=== PATIENT | male | born 1975 | race Two or more races ===

== ENCOUNTER 2024-06-13 17:10 | Inpatient (IN) | payer BC ==
[~2024-06-13] VITALS: Ht 180.3 cm; Wt 74.8 kg
[2024-06-13 17:45] VITALS: BP 179/94; PULSE 98; RESP 18; TEMP 99.3; O2SAT 97
[2024-06-13 17:52] VITALS: BP 179/94; PULSE 83; RESP 18; TEMP 99.3; O2SAT 96
[2024-06-13] MEDS ORDERED: CLON0.5T3 PO (18:23)
[2024-06-13] MEDS ORDERED: METO25TA5 PO (18:23)
[2024-06-13] MEDS ORDERED: HYDR-4902 PO (18:23)
[2024-06-13 18:38] LABS: Basophils # (auto) 0 10 ^3/uL (0-0.2); Basophils % (auto) 0.5 % (0.0-2.0); Eosinophils # (auto) 0 10 ^3/uL (0-0.8); Eosinophils % (auto) 0.1 % (0.0-7.0); Hematocrit 43.7 % (41.0-53.0); Hemoglobin 14.6 g/dL (13.5-17.5); Lymphocytes # (auto) 0.8 10 ^3/uL (0.4-5.4); Lymphocytes % (auto) 12.5 % (10.0-50.0); Mean Corpuscular Hemoglobin 28.3 pg (28.0-32.0); Mean Corpuscular Hgb Conc. 33.4 g/dL (32.0-36.0); Mean Corpuscular Volume 84.5 fL (80.0-100.0); Monocytes # (auto) 0.8 10 ^3/uL (0-1.3); Monocytes % (auto) 12.4 % (0.0-12.0); Neutrophils % (auto) 74.5 % (37.0-80.0); Nucleated Red Blood Cells % 0.1 %; Platelet Count (auto) 211 10^3/uL (140-450); Red Blood Cells 5.17 10^6/uL (4.5-5.90); Red Cell Distribution Width 12.8 % (11.8-14.3); White Blood Cell 6.8 10^3/uL (4.4-10.8)
[2024-06-13] MEDS: SODIUM CHLORIDE 0.9% 1,000 ML IV SCH ×2 (18:51→20:53)
[2024-06-13 18:56] LABS: Alanine Aminotransferase 23 U/L (7-40); Albumin 4.2 g/dL (3.2-4.8); Alkaline Phosphatase 69 U/L (46-116); Anion Gap 6 (5-15); Aspartate Aminotransferase 15 U/L (13-40); BUN/Creatinine Ratio 11.6 (10.0-20.0); Bilirubin, Total 0.5 mg/dL (0.2-1.0); Blood Urea Nitrogen 10 mg/dL (9-23); Calcium 8.9 mg/dL (8.7-10.4); Carbon Dioxide 26 mmol/L (20-31); Chloride 101 mmol/L (98-107); Glucose 199 mg/dL (74-106); Potassium 4.4 mmol/L (3.5-5.1); Sodium 133 mmol/L (136-145); Total Protein 6.2 g/dL (5.7-8.2)
[2024-06-13] MEDS: PIPERACILLIN-TAZOB 3.375GM 100 ML IV ONE (18:57)
[2024-06-13] MEDS ORDERED: ALBUTEROL SULF 2.5 MG/0.5ML(0.5%) NEB SOLN NEB PRN (19:30)
[2024-06-13 19:54] LABS: Magnesium 2.1 mg/dL (1.6-2.6)
[2024-06-13 19:56] LABS: Phosphorus 2.4 mg/dL (2.4-5.1)
[2024-06-13 20:00] VITALS: PULSE 86
[2024-06-13 20:47] LABS: Erythrocyte Sedimentation Rate 7 mm/hr (0-20)
[2024-06-13 20:48] VITALS: BP 179/94; PULSE 83; RESP 18; TEMP 99.3; O2SAT 96
[2024-06-13] MEDS: ACETAMINOPHEN 325 MG TAB PO PRN (20:50)
[2024-06-13] MEDS: METOPROLOL TARTRATE 25 MG TAB PO SCH (20:52)
[2024-06-13 21:00] VITALS: BP 165/101; PULSE 82; RESP 18; TEMP 102.5; O2SAT 97
[2024-06-14] VITALS (10 sets, daily range): BP systolic 132–165; BP diastolic 71–87; PULSE 66–86; RESP 17–20; TEMP 97.7–98.9; O2SAT 93–99
[2024-06-14] MEDS ORDERED: NITROGLYCERIN 0.4 MG SL TAB SL PRN
[2024-06-14] MEDS ORDERED: MORPHINE SULFATE INJ 2 MG/ml SYRG IV PRN
--- NOTE | 2024-06-14 00:31 | DVHHP2 ---
History of Present Illness 48 yr old young middle aged [place] male with known h/o NIDDM, Hypertension is directly admitted for further eval and management of s/s of URI congestion started several days ago followed by productive cough, chest congestion, pleuritic chest pains along with high grade fever up to 102 F with severe chills x past 2 days.Also reports to have easy tired ness, hypersomnolence As per patient, He was exposed to a family member with similar illness last week. Apparently he failed to respond to out patient treatment measures including IV antibiotics and IV isotonic saline hydration, oral antibiotics and noted to be critically ill with severe dehydration, prostation and periodic hyperventilation, tachypnoea at rate of 28/min, O2 sat low at 89% Also noted uncontrolled diabetes with hyperosmolar state on lab exam. As a result the patient is admitted for IV hydration, IV antibiotics and manage ment of uncontrolled NIDDM Past Medical History Past Medical History Medical records-reviewed Cardiovascular history-Known history of well controlled hypertension without any cardiac event or coronary intervention- Currently on Metopralol, Valsartan Respiratory history: Gastrointestinal history: History accidental H2 O2 william at upper palate Endocrine history: NIDDM, exogenous obesity-NIDDM remains good control Hemoglobin A1c improved under 6% Past Surgical History Family History Mother- has CAD, NIDDM< Hypertension Brother- has Chronic pancreatitis and NIDDM Social History 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, , lives with spouse and family History of smoking: Cigarettes: Never smoked History of smoking E cigarettes: Denies History of smoking marijuana: Denies History of drinking alcohol: History of alcoholism-Quit since 2014 History of substance abuse: Denies Patient Family History: Diabetes mellitus G8 MOTHER G8 FATHER Allergies: Coded Allergies: NO KNOWN ALLERGIES (Unverified , 06/13/24) Home Meds Reported Medications Hydrocodone-Acetaminophen (Hydrocodone Bitartrate/AC 5-325 mg) 1 Tab Tab, 1 TAB PO DAILY PRN for PAIN, TAB 06/13/24 Clonazepam (KlonoPIN TABLET) 0.5 Mg Tb, 1 TAB PO HS, #30 TAB 06/13/24 Metoprolol Tartrate (Metoprolol Tartrate) 25 Mg Tab, 25 MG PO BID for 30 Days, MG 06/13/24 Current Medications Current Medications Medications (Trade) Dose Ordered Sig/Soha Route PRN Reason Start Time Stop Time Status Last Admin Sodium Chloride 1,000 ml @ 100 mls/hr Q10H IV 06/13/24 18:00 06/13/24 19:54 DC 06/13/24 18:51 Metoprolol Tartrate (Lopressor Tablet) 25 mg BID PO 06/13/24 22:00 06/13/24 20:52 Sodium Chloride 1,000 ml @ 100 mls/hr Q10H IV 06/14/24 05:00 Promethazine HCl/ Codeine (Phenergan W/ Codeine) 5 ml Q6HP PRN PO FOR COUGH 06/13/24 19:30 Piperacillin Sod/ Tazobactam Sod 100 ml @ 25 mls/hr Q6HR IV 06/14/24 00:00 Albuterol (Ventolin Medneb) 1.25 mg Q4HPRN PRN NEB SHORTNESS OF BREATH 06/13/24 19:30 Sodium Chloride 1,000 ml @ 100 mls/hr Q10H IV 06/13/24 20:15 06/14/24 05:00 06/13/24 20:53 Acetaminophen (Tylenol Tablet) 650 mg Q6HP PRN PO MILD PAIN (1-3 PAIN SCALE) 06/13/24 20:15 06/13/24 20:50 Review of Systems Constitutional: Reports easy tiredness, high grade fever, chills weight loss HEENT: Reports headache/ENT pains or congestion, Reports sore throat hoarse voice, denies hearing or visual deficit Neck: Denies cervical spine local/radicular pains, denies goiters/stridor Denies stiffness spasms, reduced ROM, RS: Reports chest congestion, cough, wheezing, SOB, pleuritic chest pains CVS: Denies angina, palpitation, SOB, edema, orthopnea, PND GI: Reports loss of appetite, Denies epigastric pains, tenderness, N/V/D, Denies melena, GI bleeding, denies constipation, : Denies dysuria, flank pains, frequency, hematuria, Denies passing foul odor/cloudy turbid urine, nocturia MS: Reports generalized aches/pains, back pains, Denies radicular pains, denies generalized myalgias/muscle weakness EXTs: Denies edema, rash, open wounds, discoloration, radicular pains NEURO: Reports hypersomnolence, denies confused mental status, Denies focal weakness or seizures/tremors/myoclonic jerks SKIN: Denies rashes or open ulcerated wound ENDOCRINE: Reports polyuria, polydipsia, denies intolerance to heat and cold HEM/LYMPH: Reports easy tiredness, bruising, lymphadenopathy ALLERGY: Denies allergic reactions Psychiatry: Reports anxiety or depression disorder Otherwise the Review of Systems is Negative as per History & Physical Interview: Yes Vital Signs Vital Signs Date Time Temp Pulse Resp B/P (MAP) Pulse Ox O2 Delivery O2 Flow Rate FiO2 06/13/24 21:00 102.5 82 18 165/101 (122) 97 102.5 06/13/24 20:48 0.0 21 06/13/24 20:00 Room Air* Physical Exam Gen. appearance: Well-developed well nourished tall young middle aged [place] male appears critically ill, profoundly hypovolemic, hypersomnolent tachypneic, hyperventilating, in no distress- appears in stated age HEENT: Head normocephalic nontraumatic, Eye balls- shrunken-+2 Eyes: EOMI, PERRLA, conjunctiva pallor Absent, sclera nonicteric ENT: Bilateral nasal congestion and sinus tenderness present L TM- hyperemic, Tongue and mucous membranes dry+2 NECK: Supple, trachea midline, carotid upstroke +2 No thyroid or lymph node enlargement, Kernig's sign- negative no use of accessory muscles, ROM at C-spine full Breasts: Symmetrical, no lump no mass, no nipple discharge or abnormality CHEST: Asymmetrical expansion, periodic hyperventilation tachypnea, hypoventilation at bases RS: Clear breath sounds over anterior lung manning Reduced breath sounds at bilateral bases Bronchophony at R middle lobe present CVS: PMI-1 centimeter lateral to L MCL S1-S2 normal sinus, accentuated no gallop no murmur : Abdomen soft, obese, epigastric tenderness present bowel sounds present , no rebound tenderness masses or hernia EXTs: Distal pulses +2, pallor +1, no rash, no edema, capillary refill delay present, Feels peripherally cold SKIN: No rash, no open wounds 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 responds to his name, awakenable, oriented 3, cognitives slow but intact, speech nonfluent, Cranial Nerve II to XII-intact Motor- No pronator drift, 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 focal motor 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, Sensory-changes of peripheral neuropathy present, DTR +2, gait slow, wide Results Labs Test 06/13/24 18:29 Range/Units White Blood Count 6.8 4.4-10.8 10^3/uL Red Blood Count 5.17 4.5-5.90 10^6/uL Hemoglobin 14.6 13.5-17.5 g/dL Hematocrit 43.7 41.0-53.0 % Mean Corpuscular Volume 84.5 80.0-100.0 fL Mean Corpuscular Hemoglobin 28.3 28.0-32.0 pg Mean Corpuscular Hemoglobin Concent 33.4 32.0-36.0 g/dL Red Cell Distribution Width 12.8 11.8-14.3 % Platelet Count 211 140-450 10^3/uL Mean Platelet Volume 6.4 L 6.9-10.8 fL Neutrophils (%) (Auto) 74.5 37.0-80.0 % Lymphocytes (%) (Auto) 12.5 10.0-50.0 % Monocytes (%) (Auto) 12.4 H 0.0-12.0 % Eosinophils (%) (Auto) 0.1 0.0-7.0 % Basophils (%) (Auto) 0.5 0.0-2.0 % Neutrophils # (Auto) 5.0 1.6-8.6 10 ^3/uL Lymphocytes # (Auto) 0.8 0.4-5.4 10 ^3/uL Monocytes # (Auto) 0.8 0-1.3 10 ^3/uL Eosinophils # (Auto) 0 0-0.8 10 ^3/uL Basophils # (Auto) 0 0-0.2 10 ^3/uL Nucleated Red Blood Cells 0.1 % Erythrocyte Sedimentation Rate 7 0-20 mm/hr Sodium Level 133 L 136-145 mmol/L Potassium Level 4.4 3.5-5.1 mmol/L Chloride Level 101 98-107 mmol/L Carbon Dioxide Level 26 20-31 mmol/L Anion Gap 6 5-15 Blood Urea Nitrogen 10 9-23 mg/dL Creatinine 0.86 0.700-1.30 mg/dL Glomerular Filtration Rate Calc 107 >90 mL/min BUN/Creatinine Ratio 11.6 10.0-20.0 Serum Glucose 199 H 74-106 mg/dL Calcium Level 8.9 8.7-10.4 mg/dL Phosphorus Level 2.4 2.4-5.1 mg/dL Magnesium Level 2.1 1.6-2.6 mg/dL Total Bilirubin 0.5 0.2-1.0 mg/dL Aspartate Amino Transferase (AST) 15 13-40 U/L Alanine Aminotransferase (ALT) 23 7-40 U/L Alkaline Phosphatase 69 46-116 U/L C-Reactive Protein High Sensitivity 4.22 H <1.0 mg/dL Total Protein 6.2 5.7-8.2 g/dL Albumin 4.2 3.2-4.8 g/dL Primary Diagnosis Flu syndrome Suspect RML pneumonia Admitting Diagnosis: 1. Flu syndrome 2. Suspect RML pneumonia- failed to out patient measures 3. Severe dehydration 4. Altered level of consciousness from metabolic encephalopathy 5. Uncontrolled diabetes complicated by hyperosmolar state 6. Hypophospatemia 2' Diagnosis/Comorbidities 7. Personal H/o alcoholism -sober since 2014 Medical decision making: The patient appears to be critically ill from Flu syndrome -possibly complicated by developing pneumonitis on clinical exam * noted profoundly Severe dehydration-evident on clinical exam tachypnea, hyperventilation and hypersomnolence-altered consciousness The latter in abscence of focal neuro deficit is result of metobolic causes such as dehydration, +/- ? sepsis from developing pneumonia His CBC reflects total WBC-6.8 K, high no.of neutrophils 75%, 10% monocytes Serum lactate level is pending Chest x ray is pending- will follow as available Recommended sputum and blood cultures * Uncontrolled diabetes complicated by hyperosmolar state * considered immunologically compromised host for H/o NIDDM and alcoholism in past * Apparently he failed to respond to out patient treatment measures including IV antibiotics and IV isotonic saline hydration, oral antibiotics * The patient is recommended IV hydration with 0.9 NS x 2-3 liters, broad spectrum IV antibiotics and management of NIDDM thru ADA 1800 amira diet, humalog thru sliding scale and metformin * Full diabetic education is given * mario is discussed with assigned RN about diagnosis, treatment plans and prognosis Plan * Admit to telemetry * obtain blood and sputum culture * IV Zosyn- a broad spectrum antibiotics * consider bronchodilator INH and cough suppressant meds * Vitamin c 500 mg PO BID * IV isotonic saline administration followed by half NS * IV protonix * administer Na phosphate riders * Accu check Q AC and HS * Humalog thru sliding scale * oral/ Parenteral analgesics as PRN * Monitor CBC, CMP, lactate level * Update the patient The patient is well informed by me about 1. Clinical impression, treatment plans, side effects of medications, course of the disease And guarded prognosis 2. All patient's and concerns raised by patient or family are satisfactorily addressed by me Plan discussed with: Patient, Spouse Code Visit Code Visit Total Time (mins): 120 (including critical care) ALESHA VASQUEZ MD Jun 14, 2024 00:31
[2024-06-14] MEDS: PIPERACILLIN-TAZO 4.5GM 100 ML IV SCH (01:40)
[2024-06-14] MEDS: SOD CHL 0.45% 1,000 ML IV SCH (05:31)
[2024-06-14] MEDS: INSULIN LISPRO (HUMAN) 100 UNITS/ML ML SC SCH ×2 (06:17→22:23)
[2024-06-14 07:11] LABS: Alanine Aminotransferase 22 U/L (7-40); Albumin 4.1 g/dL (3.2-4.8); Alkaline Phosphatase 68 U/L (46-116); Anion Gap 5 (5-15); Aspartate Aminotransferase 14 U/L (13-40); BUN/Creatinine Ratio 9.6 (10.0-20.0); Blood Urea Nitrogen 9 mg/dL (9-23); Carbon Dioxide 26 mmol/L (20-31); Chloride 103 mmol/L (98-107); Glucose 124 mg/dL (74-106); LDL Cholesterol 97 mg/dL (< 100); Sodium 134 mmol/L (136-145); Triglycerides 96 mg/dL (< 150)
[2024-06-14 07:12] LABS: Bilirubin, Total 0.6 mg/dL (0.2-1.0); Cholesterol 169 mg/dL (< 200); HDL Cholesterol 57 mg/dL (40-59); Total Protein 6.3 g/dL (5.7-8.2)
[2024-06-14 07:35] LABS: Basophils # (auto) 0 10 ^3/uL (0-0.2); Basophils % (auto) 0.5 % (0.0-2.0); Eosinophils # (auto) 0 10 ^3/uL (0-0.8); Eosinophils % (auto) 0.5 % (0.0-7.0); Hematocrit 42.9 % (41.0-53.0); Hemoglobin 14.7 g/dL (13.5-17.5); Lymphocytes # (auto) 1.2 10 ^3/uL (0.4-5.4); Lymphocytes % (auto) 20.3 % (10.0-50.0); Mean Corpuscular Hemoglobin 28.6 pg (28.0-32.0); Mean Corpuscular Hgb Conc. 34.3 g/dL (32.0-36.0); Mean Corpuscular Volume 83.4 fL (80.0-100.0); Monocytes % (auto) 17.4 % (0.0-12.0); Neutrophils # (auto) 3.7 10 ^3/uL (1.6-8.6); Neutrophils % (auto) 61.3 % (37.0-80.0); Nucleated Red Blood Cells % 0.1 %; Platelet Count (auto) 213 10^3/uL (140-450); Red Blood Cells 5.14 10^6/uL (4.5-5.90)
[2024-06-14] MEDS: KETOROLAC TROMETH 30 MG/ML 1ML VIAL IV PRN (09:56)
[2024-06-14] MEDS: PROMETHAZINE W/CODEINE 5 ML ORAL SYRUP PO PRN (09:57)
--- NOTE | 2024-06-14 10:56 | DVH ---
CHEST RADIOGRAPH Indication: PNEUMONIA Technique: Frontal and lateral view of the chest was obtained Comparison: None FINDINGS: Lines and Tubes: None Lungs: Clear Pleura: No effusion. No pneumothorax. Cardiomediastinal contours: Unremarkable Bones: Unremarkable IMPRESSION: No evidence of acute disease.
[2024-06-14 13:38] LABS: Urine Bacteria None Seen /hpf (None Seen)
[2024-06-14 13:52] LABS: Urine Blood Negative /uL (Negative); Urine Clarity Clear (Clear); Urine Color Light-Yellow (Yellow); Urine Protein, UAD Negative (Negative); Urine Specific Gravity 1.012 (1.001-1.035); Urine Urobilinogen Normal (Negative); Urine WBC <1 /hpf (0 - 3)
[2024-06-14] MEDS: SODIUM PHOSPHATES 20 MEQ in SODIUM CHL 0.9% 100 ML IV SCH (14:06)
[2024-06-14] MEDS: CLOTRIMAZOLE W/ BETAMETH TOPICAL CR 15 GM TUBE TOP SCH (22:00)
--- NOTE | 2024-06-14 23:17 | DVHPN2 ---
Progress Note - Dictate Date Seen: Jun 14, 2024 Has the PT tested + for MRSA If YES, has PT been informed?: No Medical Necessity Reason Pt with a Central, PICC or Fol: No Medical Necessity Reason IV antibiotics, IV hydration Subjective The patient still symptomatic for cough chest congestion and hypovolemia While noted significant recovery from hypersomnolence * Continued on IV antibiotics and bronchodilators * Noted fairly well-controlled diabetes with hyperglycemia * noted fungal infection affecting palms of bilateral hands and Plantar surface of bilateral feeet Overnight events are reviewed through medical chart and case discussion with patient's assigned RN while making rounds on patient on the day of service vital signs Vital Sign Date Time Temp Pulse Resp B/P (MAP) Pulse Ox O2 Delivery O2 Flow Rate FiO2 06/14/24 22:13 145/76 06/14/24 21:00 98.3 77 20 96 98.3 06/14/24 20:00 Room Air* 0 21 Total Intake and Output 06/13/24 06/13/24 06/14/24 15:00 23:00 07:00 Intake Total 0 ml 500 ml Output Total 0 ml 0 ml Balance 0 ml 500 ml medications Current Medications Medications Dose Ordered Sig/Soha Route Start Time Stop Time Status Last Admin Dose Admin Metoprolol Tartrate 25 mg BID PO 06/13/24 22:00 06/14/24 22:13 25 MG Sodium Chloride 1,000 ml @ 100 mls/hr Q10H IV 06/14/24 05:00 06/14/24 14:08 100 MLS/HR Promethazine HCl/ Codeine 5 ml Q6HP PRN PO 06/13/24 19:30 06/14/24 09:57 5 ML Piperacillin Sod/ Tazobactam Sod 100 ml @ 25 mls/hr Q6HR IV 06/14/24 00:00 06/14/24 22:13 25 MLS/HR Albuterol 1.25 mg Q4HPRN PRN NEB 06/13/24 19:30 Acetaminophen 650 mg Q6HP PRN PO 06/13/24 20:15 06/13/24 20:50 650 MG Sodium Phosphate 20 meq/Sodium Chloride 105 ml @ 26.25 mls/ hr BID IV 06/14/24 08:30 06/15/24 08:00 06/14/24 18:10 26.25 MLS/HR Insulin Human Lispro AC SC 06/14/24 07:00 06/14/24 16:41 8 UNITS Insulin Human Lispro HS SC 06/14/24 22:00 06/14/24 22:23 4 UNITS Nitroglycerin 0.4 mg Q5MINP PRN SL 06/14/24 00:00 Morphine Sulfate 2 mg Q30M PRN IV 06/14/24 00:00 Ketorolac Tromethamine 30 mg Q6HPRN PRN IV 06/14/24 09:30 06/19/24 09:29 06/14/24 09:56 30 MG Fluconazole 200 mg DAILY PO 06/15/24 10:00 Betamethasone/ Clotrimazole 1 applic Q12HR TOP 06/14/24 22:00 objective Gen. appearance: Well-developed well nourished tall young middle aged [place] male appears awake alert oriented cooperative in no current distress HEENT: Head normocephalic nontraumatic, Eye balls- shrunken-+1 Eyes: EOMI, PERRLA, conjunctiva pallor Absent, sclera nonicteric ENT: Bilateral nasal congestion and sinus tenderness present L TM- hyperemic, Tongue and mucous membranes -wet NECK: Supple, trachea midline, carotid upstroke +2 No thyroid or lymph node enlargement, Kernig's sign- negative no use of accessory muscles, ROM at C-spine full Breasts: Symmetrical, no lump no mass, no nipple discharge or abnormality CHEST: Symmetrical expansion Noperiodic hyperventilation RS: Clear breath sounds over anterior lung manning A few late inspiratory rales present at bilateral bases CVS: PMI-1 centimeter lateral to L MCL S1-S2 normal sinus, normal intensity no gallop no murmur : Abdomen soft, obese, no focal tenderness, bowel sounds present , no rebound tenderness masses or hernia EXTs: Distal pulses +2, pallor +1, no rash, no edema, capillary refill delay present, Feels peripherally cold SKIN: No rash, no open wounds 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 Flu syndrome 2. Suspect RML pneumonia- failed to out patient measures 3. Severe dehydration 4. Altered level of consciousness from metabolic encephalopathy 5. Uncontrolled diabetes complicated by hyperosmolar state 6. Hypophospatemia 2' Diagnosis/Comorbidities 7. Personal H/o alcoholism -sober since 2014 Assessment/Plan Medical decision making: Noted significant recovery in state of hypovolemia, Hypersomnolence * Noted awake alert oriented x3 * Noted correction of severe hypovolemia * Patient still requires IV hydration * Still symptomatic for chest congestion cough * Continued patient on IV antibiotics His CBC reflects total WBC-6 K, high no.of neutrophils 60%, 17% monocytes Chest x-ray rules out pneumonia Blood cultures are unremarkable for bacterial growth * Seem considering immuno compromised * Continued on IV antibiotics Uncontrolled diabetes complicated by hyperosmolar state..... Improving * Continued patient on Humalog sliding scale, metformin * Recommended ADA 1800 calorie diet * Hemoglobin A1c 6.8 % * Full diabetic education is given * mario is discussed with assigned RN about diagnosis, treatment plans and prognosis Treatment plans as of today * Continue hospital stay at medical floor with telemetry * Continue follow blood and sputum culture results * Continue IV Zosyn- a broad spectrum antibiotics * consider bronchodilator INH and cough suppressant meds * Vitamin c 500 mg PO BID * Continue half-normal saline IV fluids * IV protonix * administer Na phosphate riders * Accu check Q AC and HS * Humalog thru sliding scale * oral/ Parenteral analgesics as PRN * Monitor CBC, CMP, phosphorus by morning * Update the patient The patient is well informed by me about 1. Clinical impression, treatment plans, side effects of medications, course of the disease And fair prognosis 2. All patient's and concerns raised by patient or family are satisfactorily addressed by me Prognosis Fair Plan discussed with: Patient, Spouse Total Time (mins): 45 ALESHA VASQUEZ MD Jun 14, 2024 23:17
[2024-06-15] VITALS (9 sets, daily range): BP systolic 128–151; BP diastolic 73–84; PULSE 56–100; RESP 17–20; TEMP 97.1–98.8; O2SAT 72–98
[2024-06-15 06:41] LABS: Alanine Aminotransferase 21 U/L (7-40); Alkaline Phosphatase 64 U/L (46-116); Anion Gap 8 (5-15); BUN/Creatinine Ratio 15.9 (10.0-20.0); Blood Urea Nitrogen 13 mg/dL (9-23); Calcium 9.2 mg/dL (8.7-10.4); Carbon Dioxide 25 mmol/L (20-31); Chloride 105 mmol/L (98-107); Glucose 114 mg/dL (74-106); Potassium 4.4 mmol/L (3.5-5.1); Sodium 138 mmol/L (136-145)
[2024-06-15 06:42] LABS: Albumin 3.9 g/dL (3.2-4.8); Aspartate Aminotransferase 13 U/L (13-40); Bilirubin, Total 0.4 mg/dL (0.2-1.0); Total Protein 5.9 g/dL (5.7-8.2)
[2024-06-15] MEDS: FLUCONAZOLE 100 MG TAB PO SCH (09:48)
[2024-06-16] MEDS: SOD CHL 0.45% 1,000 ML IV SCH (00:45)
[2024-06-16 05:00] VITALS: BP 145/80; PULSE 98; RESP 17; TEMP 98.2; O2SAT 71
[2024-06-16 07:30] VITALS: PULSE 61; PULSE 62; RESP 19; O2SAT 98
[2024-06-16 09:00] VITALS: BP 139/95; PULSE 62; RESP 19; TEMP 98.7; O2SAT 98
[2024-06-16 10:24] VITALS: O2SAT 98
--- NOTE | 2024-06-16 13:36 | DVHPN2 ---
Progress Note - Dictate Date Seen: Jun 15, 2024 Has the PT tested + for MRSA If YES, has PT been informed?: No Medical Necessity Reason Pt with a Central, PICC or Fol: No Subjective The patient still symptomatic for cough chest congestion and hypovolemia While noted significant recovery from hypersomnolence * Continued on IV antibiotics and bronchodilators * Noted fairly well-controlled diabetes with hyperglycemia * noted fungal infection affecting palms of bilateral hands and Plantar surface of bilateral feeet Overnight events are reviewed through medical chart and case discussion with patient's assigned RN while making rounds on patient on the day of service vital signs Vital Sign Date Time Temp Pulse Resp B/P (MAP) Pulse Ox O2 Delivery O2 Flow Rate FiO2 06/15/24 21:00 97.1 100 17 153/90 98 0 06/15/24 900 98.8 64 20 150/79 97 Room Air* 06/15/24 05:00 97.6 67 20 128/84 97 Room Air* 98.7 Total Intake and Output 06/15/24 06/15/24 06/16/24 15:00 23:00 07:00 Intake Total 1400 ml 500 ml Balance 1400 ml 500 ml medications Current Medications Medications Dose Ordered Sig/Soha Route Start Time Stop Time Status Last Admin Dose Admin Metoprolol Tartrate 25 mg BID PO 06/13/24 22:00 06/16/24 10:21 25 MG Promethazine HCl/ Codeine 5 ml Q6HP PRN PO 06/13/24 19:30 06/14/24 09:57 5 ML Piperacillin Sod/ Tazobactam Sod 100 ml @ 25 mls/hr Q6HR IV 06/14/24 00:00 06/16/24 12:27 25 MLS/HR Albuterol 1.25 mg Q4HPRN PRN NEB 06/13/24 19:30 Cancel Acetaminophen 650 mg Q6HP PRN PO 06/13/24 20:15 06/13/24 20:50 650 MG Insulin Human Lispro AC SC 06/14/24 07:00 06/16/24 11:30 2 UNITS Insulin Human Lispro HS SC 06/14/24 22:00 06/15/24 21:27 6 UNITS Nitroglycerin 0.4 mg Q5MINP PRN SL 06/14/24 00:00 Morphine Sulfate 2 mg Q30M PRN IV 06/14/24 00:00 Ketorolac Tromethamine 30 mg Q6HPRN PRN IV 06/14/24 09:30 06/19/24 09:29 06/14/24 09:56 30 MG Fluconazole 200 mg DAILY PO 06/15/24 10:00 06/16/24 10:21 200 MG Betamethasone/ Clotrimazole 1 applic Q12HR TOP 06/14/24 22:00 Sodium Chloride 1,000 ml @ 40 mls/hr Q24H IV 06/16/24 00:15 06/16/24 00:45 40 MLS/HR objective Gen. appearance: Well-developed well nourished tall young middle aged male appears awake alert oriented cooperative in no current distress HEENT: Head normocephalic nontraumatic, Eye balls- shrunken-+1 Eyes: EOMI, PERRLA, conjunctiva pallor Absent, sclera nonicteric ENT: Bilateral nasal congestion and sinus tenderness present L TM- hyperemic, Tongue and mucous membranes -wet NECK: Supple, trachea midline, carotid upstroke +2 No thyroid or lymph node enlargement, Kernig's sign- negative no use of accessory muscles, ROM at C-spine full Breasts: Symmetrical, no lump no mass, no nipple discharge or abnormality CHEST: Symmetrical expansion Noperiodic hyperventilation RS: Clear breath sounds over anterior lung manning A few late inspiratory rales present at bilateral bases CVS: PMI-1 centimeter lateral to L MCL S1-S2 normal sinus, normal intensity no gallop no murmur : Abdomen soft, obese, no focal tenderness, bowel sounds present , no rebound tenderness masses or hernia EXTs: Distal pulses +2, pallor +1, no rash, no edema, capillary refill delay present, Feels peripherally cold SKIN: No rash, no open wounds 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 Flu syndrome 2. Suspect RML pneumonia- failed to out patient measures 3. Severe dehydration 4. Altered level of consciousness from metabolic encephalopathy 5. Uncontrolled diabetes complicated by hyperosmolar state 6. Hypophospatemia 2' Diagnosis/Comorbidities 7. Personal H/o alcoholism -sober since 2014 Assessment/Plan Medical decision making: Noted significant recovery in state of hypovolemia, Hypersomnolence * Noted awake alert oriented x3 * Noted correction of severe hypovolemia * Patient still requires IV hydration * Still symptomatic for chest congestion cough * Continued patient on IV antibiotics His CBC reflects total WBC-6 K, high no.of neutrophils 60%, 17% monocytes Chest x-ray rules out pneumonia Blood cultures are unremarkable for bacterial growth * Seem considering immuno compromised * Continued on IV antibiotics Uncontrolled diabetes complicated by hyperosmolar state..... Improving * Continued patient on Humalog sliding scale, metformin * Recommended ADA 1800 calorie diet * Hemoglobin A1c 6.8 % * Full diabetic education is given * mario is discussed with assigned RN about diagnosis, treatment plans and prognosis Treatment plans as of today * Continue hospital stay at medical floor with telemetry * Continue follow blood and sputum culture results * Continue IV Zosyn- a broad spectrum antibiotics * consider bronchodilator INH and cough suppressant meds * Vitamin c 500 mg PO BID * Continue half-normal saline IV fluids * IV protonix * administer Na phosphate riders * Accu check Q AC and HS * Humalog thru sliding scale * oral/ Parenteral analgesics as PRN * Monitor CBC, CMP, phosphorus by morning * Update the patient The patient is well informed by me about 1. Clinical impression, treatment plans, side effects of medications, course of the disease And fair prognosis 2. All patient's and concerns raised by patient or family are satisfactorily addressed by me ALESHA VASQUEZ MD Jun 16, 2024 13:36
--- NOTE | 2024-06-16 13:36 | DVHPN2 ---
Progress Note - Dictate Date Seen: Jun 16, 2024 Has the PT tested + for MRSA If YES, has PT been informed?: No Medical Necessity Reason Pt with a Central, PICC or Fol: No Subjective The patient still symptomatic for cough chest congestion and hypovolemia While noted significant recovery from hypersomnolence * Continued on IV antibiotics and bronchodilators * Noted fairly well-controlled diabetes with hyperglycemia * noted fungal infection affecting palms of bilateral hands and Plantar surface of bilateral feeet Overnight events are reviewed through medical chart and case discussion with patient's assigned RN while making rounds on patient on the day of service vital signs Vital Sign Date Time Temp Pulse Resp B/P (MAP) Pulse Ox O2 Delivery O2 Flow Rate FiO2 06/16/24 10:24 98 Room Air* 0 21 06/16/24 10:21 62 139/95 06/16/24 09:00 98.7 19 98.7 Total Intake and Output 06/15/24 06/15/24 06/16/24 15:00 23:00 07:00 Intake Total 1400 ml 500 ml Balance 1400 ml 500 ml medications Current Medications Medications Dose Ordered Sig/Soha Route Start Time Stop Time Status Last Admin Dose Admin Metoprolol Tartrate 25 mg BID PO 06/13/24 22:00 06/16/24 10:21 25 MG Promethazine HCl/ Codeine 5 ml Q6HP PRN PO 06/13/24 19:30 06/14/24 09:57 5 ML Piperacillin Sod/ Tazobactam Sod 100 ml @ 25 mls/hr Q6HR IV 06/14/24 00:00 06/16/24 12:27 25 MLS/HR Albuterol 1.25 mg Q4HPRN PRN NEB 06/13/24 19:30 Cancel Acetaminophen 650 mg Q6HP PRN PO 06/13/24 20:15 06/13/24 20:50 650 MG Insulin Human Lispro AC SC 06/14/24 07:00 06/16/24 11:30 2 UNITS Insulin Human Lispro HS SC 06/14/24 22:00 06/15/24 21:27 6 UNITS Nitroglycerin 0.4 mg Q5MINP PRN SL 06/14/24 00:00 Morphine Sulfate 2 mg Q30M PRN IV 06/14/24 00:00 Ketorolac Tromethamine 30 mg Q6HPRN PRN IV 06/14/24 09:30 06/19/24 09:29 06/14/24 09:56 30 MG Fluconazole 200 mg DAILY PO 06/15/24 10:00 06/16/24 10:21 200 MG Betamethasone/ Clotrimazole 1 applic Q12HR TOP 06/14/24 22:00 Sodium Chloride 1,000 ml @ 40 mls/hr Q24H IV 06/16/24 00:15 06/16/24 00:45 40 MLS/HR objective Gen. appearance: Well-developed well nourished tall young middle aged male appears awake alert oriented cooperative in no current distress HEENT: Head normocephalic nontraumatic, Eye balls- shrunken-+1 Eyes: EOMI, PERRLA, conjunctiva pallor Absent, sclera nonicteric ENT: Bilateral nasal congestion and sinus tenderness present L TM- hyperemic, Tongue and mucous membranes -wet NECK: Supple, trachea midline, carotid upstroke +2 No thyroid or lymph node enlargement, Kernig's sign- negative no use of accessory muscles, ROM at C-spine full Breasts: Symmetrical, no lump no mass, no nipple discharge or abnormality CHEST: Symmetrical expansion Noperiodic hyperventilation RS: Clear breath sounds over anterior lung manning A few late inspiratory rales present at bilateral bases CVS: PMI-1 centimeter lateral to L MCL S1-S2 normal sinus, normal intensity no gallop no murmur : Abdomen soft, obese, no focal tenderness, bowel sounds present , no rebound tenderness masses or hernia EXTs: Distal pulses +2, pallor +1, no rash, no edema, capillary refill delay present, Feels peripherally cold SKIN: No rash, no open wounds ESCROW AGENT: Awake, alert, oriented 3, cognitives -improved, speech-fluent, Cranial Nerve II to XII-intact Motor- No pronator drift, public relations sales marketing focal motor deficit, Sensory-changes of peripheral neuropathy present, DTR +2, gait slow, wide laboratory and microbiology Laboratory Tests 06/15/24 05:36 06/14/24 06:00 Test 06/15/24 05:36 Range/Units Serum Glucose 114 H 74-106 mg/dL Problem List 1. Flu syndrome 2. Suspect RML pneumonia- failed to out patient measures 3. Severe dehydration 4. Altered level of consciousness from metabolic encephalopathy 5. Uncontrolled diabetes complicated by hyperosmolar state 6. Hypophospatemia 2' Diagnosis/Comorbidities 7. Personal H/o alcoholism -sober since 2014 Assessment/Plan Medical decision making: Noted significant recovery in state of hypovolemia, Hypersomnolence * Noted awake alert oriented x3 * Noted correction of severe hypovolemia * Patient still requires IV hydration * Still symptomatic for chest congestion cough * Continued patient on IV antibiotics His CBC reflects total WBC-6 K, high no.of neutrophils 60%, 17% monocytes Chest x-ray rules out pneumonia Blood cultures are unremarkable for bacterial growth * Seem considering immuno compromised * Continued on IV antibiotics Uncontrolled diabetes complicated by hyperosmolar state..... Improving * Continued patient on Humalog sliding scale, metformin * Recommended ADA 1800 calorie diet * Hemoglobin A1c 6.8 % * Full diabetic education is given * mario is discussed with assigned RN about diagnosis, treatment plans and prognosis Treatment plans as of today * Continue hospital stay at medical floor with telemetry * Continue follow blood and sputum culture results * Continue IV Zosyn- a broad spectrum antibiotics * consider bronchodilator INH and cough suppressant meds * Vitamin c 500 mg PO BID * Continue half-normal saline IV fluids * IV protonix * administer Na phosphate riders * Accu check Q AC and HS * Humalog thru sliding scale * oral/ Parenteral analgesics as PRN * Monitor CBC, CMP, phosphorus by morning * Update the patient The patient is well informed by me about 1. Clinical impression, treatment plans, side effects of medications, course of the disease And fair prognosis 2. All patient's and concerns raised by patient or family are satisfactorily addressed by me ALESHA VASQUEZ MD Jun 16, 2024 13:36
[2024-06-16] MEDS ORDERED: GUAI100S6 PO (13:44)
[2024-06-16] MEDS ORDERED: VALS1TAB57 PO (13:49)
[2024-06-16] MEDS ORDERED: METF-371 PO (13:49)
[2024-06-16] MEDS ORDERED: DEXT1LIQ PO (13:49)
[2024-06-16] MEDS ORDERED: CLOTCRE3 TOP (13:49)
[2024-06-16] MEDS ORDERED: FLUC100T34 PO (13:49)
[2024-06-16] MEDS ORDERED: CEFU500T43 PO (13:49)
--- NOTE | 2024-06-16 14:21 | DVHDS2 ---
Discharge Summary Date of Admission Jun 13, 2024 at 17:30 Date of Discharge: Jun 16, 2024 Labs/Diagnostic Data: Laboratory Results Test 06/16/24 12:05 06/15/24 05:36 06/14/24 13:28 06/14/24 06:00 POC Glucose 185 mg/dl (70-106) Sodium Level 138 mmol/L (136-145) Potassium Level 4.4 mmol/L (3.5-5.1) Chloride Level 105 mmol/L (98-107) Carbon Dioxide Level 25 mmol/L (20-31) Anion Gap 8 (5-15) Blood Urea Nitrogen 13 mg/dL (9-23) Creatinine 0.82 mg/dL (0.700-1.30) Glomerular Filtration Rate Calc 109 mL/min (>90) BUN/Creatinine Ratio 15.9 (10.0-20.0) Serum Glucose 114 mg/dL (74-106) Calcium Level 9.2 mg/dL (8.7-10.4) Phosphorus Level 3.0 mg/dL (2.4-5.1) Total Bilirubin 0.4 mg/dL (0.2-1.0) Aspartate Amino Transferase (AST) 13 U/L (13-40) Alanine Aminotransferase (ALT) 21 U/L (7-40) Alkaline Phosphatase 64 U/L (46-116) Lactate Dehydrogenase 196 U/L (120-246) Total Protein 5.9 g/dL (5.7-8.2) Albumin 3.9 g/dL (3.2-4.8) Urine Color Light-yellow (Yellow) Urine Clarity Clear (Clear) Urine pH 6.0 (5.0-9.0) Urine Specific Thompson 1.012 (1.001-1.035) Urine Protein Negative (Negative) Urine Ketones Negative (Negative) Urine Blood Negative /uL (Negative) Urine Nitrite Negative (Negative) Urine Bilirubin Negative (Negative) Urine Urobilinogen Normal mg/dL (Negative) Urine Leukocyte Esterase Negative /uL (Negative) Urine RBC <1 /hpf (0 - 3) Urine WBC <1 /hpf (0 - 3) Urine Squamous Epithelial Cells None seen /hpf (<5) Urine Bacteria None seen /hpf (None Seen) Urine Glucose 4+ mg/dL (Normal) White Blood Count 6.0 10^3/uL (4.4-10.8) Red Blood Count 5.14 10^6/uL (4.5-5.90) Hemoglobin 14.7 g/dL (13.5-17.5) Hematocrit 42.9 % (41.0-53.0) Mean Corpuscular Volume 83.4 fL (80.0-100.0) Mean Corpuscular Hemoglobin 28.6 pg (28.0-32.0) Mean Corpuscular Hemoglobin Concent 34.3 g/dL (32.0-36.0) Red Cell Distribution Width 13.0 % (11.8-14.3) Platelet Count 213 10^3/uL (140-450) Mean Platelet Volume 6.9 fL (6.9-10.8) Neutrophils (%) (Auto) 61.3 % (37.0-80.0) Lymphocytes (%) (Auto) 20.3 % (10.0-50.0) Monocytes (%) (Auto) 17.4 % (0.0-12.0) Eosinophils (%) (Auto) 0.5 % (0.0-7.0) Basophils (%) (Auto) 0.5 % (0.0-2.0) Neutrophils # (Auto) 3.7 10 ^3/uL (1.6-8.6) Lymphocytes # (Auto) 1.2 10 ^3/uL (0.4-5.4) Monocytes # (Auto) 1.0 10 ^3/uL (0-1.3) Eosinophils # (Auto) 0 10 ^3/uL (0-0.8) Basophils # (Auto) 0 10 ^3/uL (0-0.2) Nucleated Red Blood Cells 0.1 % Hemoglobin A1c 6.8 % A1C (<5.7) Triglycerides Level 96 mg/dL (< 150) Cholesterol Level 169 mg/dL (< 200) LDL Cholesterol 97 mg/dL (< 100) HDL Cholesterol 57 mg/dL (40-59) Test 06/13/24 18:29 Erythrocyte Sedimentation Rate 7 mm/hr (0-20) Magnesium Level 2.1 mg/dL (1.6-2.6) C-Reactive Protein High Sensitivity 4.22 mg/dL (<1.0) Other Laboratory Tests 06/15/24 05:36 06/14/24 06:00 Final Diagnosis/Problems List 1. Flu syndrome 2. Suspect RML pneumonia- failed to out patient measures 3. Severe dehydration 4. Altered level of consciousness from metabolic encephalopathy 5. Uncontrolled diabetes complicated by hyperosmolar state 6. Hypophospatemia Discharge Disposition: Home Discharge Instruct/Medications Diet: Consistent carbohydrate, Cardiac 2g Na,low cholest Diet comment: 1800 amira ADA Activity: Light activity Follow Up/Referral: Dr. Briggs Medications: pl refer to [place] Med rec Discharge Statement: "Patient was advised to return to the ER or call 911 if any headaches, dizziness, shortness of breath, chest pain, abdominal pain, bleeding, fevers, or worsening of medical condition. Patient was counseled about treatment plan, medications, possible side effects, patientverbalized understanding. All questions were answered to the best of my ability. This discharge took greater then 30 minutes in planning, reviewing documentation, counseling the patient, and discussing with other team members." ASSESSMENT ASSESSMENT Assessment 1. Flu syndrome 2. Suspect RML pneumonia- failed to out patient measures 3. Severe dehydration 4. Altered level of consciousness from metabolic encephalopathy 5. Uncontrolled diabetes complicated by hyperosmolar state 6. Hypophospatemia ALESHA BRIGGS MD Jun 16, 2024 14:21
[2024-06-16 14:57] VITALS: BP 128/60; PULSE 72; RESP 18; TEMP 97.9; O2SAT 97
== END 2024-06-16 15:45 | disposition home or self-care (01) | DRG 70 ==
LOC: TELE-WESTW 17:30
PROVIDERS: ADMIT Specialist; ATTEND Specialist
DX: G93.41 Metabolic encephalopathy (principal); E11.00 Type 2 diabetes mellitus with hyperosmolarity without nonketotic hyperglycemic-hyperosmolar coma (NKHHC); J18.9 Pneumonia, unspecified organism; E86.0 Dehydration; E86.1 Hypovolemia; G47.10 Hypersomnia, unspecified; I10 Essential (primary) hypertension; F10.20 Alcohol dependence, uncomplicated; E83.39 Other disorders of phosphorus metabolism; Z79.84 Long term (current) use of oral hypoglycemic drugs; Z82.49 Family history of ischemic heart disease and other diseases of the circulatory system; Z79.4 Long term (current) use of insulin; Z79.899 Other long term (current) drug therapy
CPT/HCPCS: 36415; 71046; 80053; 80061; 81001; 82962; 83036; 83615; 83735; 84100; 85025; 85652; 86141; 87040; 99291; G0378; J1815; J1885; J2543